=== PATIENT | male | born 1965 | race Caucasian/White ===

== ENCOUNTER 2017-06-13 16:02 | Emergency (ER) | payer OTHER ==
[~2017-06-13] VITALS: Ht 172.7 cm; Wt 83.9 kg
== END 2017-06-14 00:20 | disposition home or self-care (01) ==
LOC: ER 16:02
DX: K52.9 Noninfective gastroenteritis and colitis, unspecified (principal)

== ENCOUNTER 2018-03-03 17:35 | Emergency (ER) | payer OTHER ==
[~2018-03-03] VITALS: Ht 172.7 cm; Wt 83.9 kg
[2018-03-03] MEDS ORDERED: [UNRECOGNIZED DRUG - OTHER] (17:59)
[2018-03-03] MEDS ORDERED: SYNTHROID50 MCG PO (17:59)
[2018-03-03] MEDS ORDERED: INTESTINEX680 M1 PO (21:27)
[2018-03-03] MEDS ORDERED: AMOX-CLAV 875-1 EACH PO (21:27)
[2018-03-03] MEDS ORDERED: PERCOCET 5-3251 EACH PO (21:27)
[2018-03-03] MEDS ORDERED: CELEBREX100 MG PO (21:27)
== END 2018-03-03 21:37 | disposition home or self-care (01) ==
LOC: ER 17:35
DX: S61.212A Laceration without foreign body of right middle finger without damage to nail, initial encounter (principal); W26.8XXA Contact with other sharp object(s), not elsewhere classified, initial encounter; Y93.89 Activity, other specified; Y92.89 Other specified places as the place of occurrence of the external cause; Y99.8 Other external cause status